=== PATIENT | male | born 1965 | race Caucasian/White ===

== ENCOUNTER 2024-06-21 12:13 | Emergency (ER) | payer BC, SELFPAY ==
[2024-06-21 12:14] VITALS: BP 152/92; PULSE 76; RESP 12; TEMP 36.4; O2SAT 97
--- NOTE | 2024-06-21 12:33 | ED.GENADUL_ITS ---
Discharge Plan Disposition Patient Disposition: Home Condition: Stable Discharge Details Clinical Impression: Splinter Primary Care Provider: Unknown,Unknown ED Provider: Gume Manjarrez Home Meds and New Rx's Prescriptions: New cephalexin 500 mg capsule 500 mg PO QID 3 Days Qty: 12 0RF No Action No Known Home Meds Discharge Instructions Instructions: Cephalexin, Foreign Body in Skin ED Additional Instructions: You were seen in the emergency department for your right large retained splinter of your left doan, this was removed after enlarging the puncture wound slightly with an incision, we removed about a 1.5 inch splinter from your leg, and placing you on 3 days of prophylactic antibiotics, please double check with your primary care provider on your test status, please return to the emergency department for any increasing signs of infection like redness, drainage pus from the area, gross swelling and increasing tenderness with red streaking up the leg. HPI General Date/Time Provider Initiated Documentation: 06/21/24 12:32 . HPI Narrative: 59 year-old male presents to ED today by POV/ambulating with a chief complaint of splinter stuck in L anterior doan while performing yard work with onset around 1000. Patient states large oak splinter went into his anterior doan. Quality described as not overly painful, no radiation to active bleeding, proximity to joint, other injuries, numbness distally. Severity is described as mild. Palliating factors include attempted self-removal but couldn't get it out. Provoking factors include nothing specific. Events leading up to the inciden t/Associated Symptoms: Patient is unsure of his last Tdap. Patient not anticoagulated. Related Data Home Medications ?Medication ?Instructions ?Recorded ?Confirmed Unknown [No Known Home Meds] 06/21/24 06/21/24 cephalexin 500 mg capsule 500 mg PO QID 3 days #12 caps 06/21/24 Previous Rx's ?Medication ?Instructions ?Recorded cephalexin 500 mg capsule 500 mg PO QID 3 days #12 caps 06/21/24 Allergies Allergy/AdvReac Type Severity Reaction Status Date / Time No Known Allergies Allergy Verified 06/21/24 12:19 General Stated Complaint: ForeignBody SUSU: 4 Review of Systems All systems reviewed & are unremarkable except as noted in HPI and below Exam Narrative Exam Narrative: GENERAL APPEARANCE: Well-nourished, non-toxic, awake and alert, atraumatic, no acute distress. SKIN: Warm, pink, dry, intact, single isolated puncture with wooden splinter palpated to L anterior doan, no active bleeding, well away from joint site, NV intact distally HEAD: Normocephalic, atraumatic, normal hair distribution for gender/age. EYES: Normal conjunctiva, no exudates on lids/lashes. ENT: Nares patent, no circumoral cyanosis, no facial swelling NECK: Supple, trachea midline, painless cervical ROM. LUNGS/CHEST: Non-labored respirations, normal A/P diameter, symmetrical expansion, no chest wall deformity HEART (CV/PV): No peripheral edema, no JVD. ABDOMEN: Soft, non-distended, no guarding. MSK: Normal ROM, no swelling/deformity to bilateral UEs or LEs, moving all extremities without weakness, no cyanosis, spine midline without tenderness, normal curvature. NEURO: Mental Status AAOx4 - alert to person, place, time, events No facial droop, no forehead involvement. Motor: No focal weakness - strength 5/5 in bilateral UEs and LEs, proximal and distal, symmetric. Sensory: sensation intact to light touch globally. Gait normal: patient ambulated without ataxia into ED room. PSYCH: euthymic, cooperative, pleasant, appropriate speech Course Vital Signs Vital signs: Vital Signs Temperature 36.4 C L 06/21/24 12:14 Pulse 76 06/21/24 12:14 Respiratory Rate 12 06/21/24 12:14 Blood Pressure 152/92 H 06/21/24 12:14 Pulse Oximetry 97 06/21/24 12:14 Temperature 36.4 C L 06/21/24 12:14 Temperature Source Oral 06/21/24 12:14 Pulse 76 06/21/24 12:14 Respiratory Rate 12 06/21/24 12:14 Respiratory Effort Normal 06/21/24 12:20 Blood Pressure 152/92 H 06/21/24 12:14 Pulse Oximetry 97 06/21/24 12:14 Oxygen Delivery Method Room Air 06/21/24 12:14 Oxygen Flow Rate 0 06/21/24 12:14 Pain Level 1 06/21/24 12:14 Procedures Foreign Body Removal Time Out Performed: yes Site: left and lower extremity Description of foreign body: other (splinter) Sedation/Analgesia: none Technique: removal with forceps and incision made to facilitate removal Confirmed by:: direct visualization and palpation Complications: none Post-procedure exam: awake, alert Neurovascular: normal distal pulse, normal capillary fill, distal light touch sensation intact and distal motor function normal Medical Decision Making This dictation utilizes [id number] dictation software and may contain unedited grammatical errors. 59 year-old male presents to ED today by POV/ambulating with a chief complaint of splinter stuck in L anterior doan while performing yard work with onset around 1000. Patient states large oak splinter went into his anterior doan. Quality described as not overly painful, no radiation to active bleeding, proximity to joint, other injuries, numbness distally. Severity is described as mild. Palliating factors include attempted self-removal but couldn't get it out. Provoking factors include nothing specific. Events leading up to the inciden t/Associated Symptoms: Patient is unsure of his last Tdap. Patients' medical history: noncontributory. Family and social history: noncontributory. Pertinent exam findings / vital signs include single isolated puncture with wooden splinter palpated to L anterior doan, no active bleeding, well away from joint site, NV intact distally. Differential / pathologies of concern include retained foreign body. Diagnostic studies of: -none. Interventions of: -splinter removal with mosquito forceps and 0.25cm expanded incision with #15 blade. ED Course/Assessment/Plan: 59-year-old male has a large wood splinter in his anterior left doan, I did expand the puncture wound by 0.25 cm with a 15 blade and was able to push the distal end of the splinter toward the entry wound and remove it with mosquito forceps without issue, about a 1.5 inch piece of Rampart was removed. Patients' Tdap is possibly up to date- I advised he check with his PCP. Findings not consistent with further retrained foreign body. Disposition of Splinter. Patient verbalized understanding of the plan and return to ED criteria and engaged in shared decision making. Medical Records Medical records reviewed: Yes I reviewed the patient's medical records. Quality:SDOH Health Related Social Needs: No Data to Display PFSH All Active Problems (Updated 06/21/24 @ 13:03 by DERRELL Miller) Splinter (Acute) Social History Smoking/Tobacco Use Status: Former Tobacco Use Smoking risk assessment performed?: Yes Drug use: Never Substance use type: does not use Housing: house Do you feel safe at home: Yes Do you feel safe in your relationship?: Yes
[2024-06-21] MEDS: Lidocaine/Epinephri/Tetracaine Topical Gel 3 ML TP (12:36)
== END 2024-06-21 13:12 | disposition home or self-care (01) ==
LOC: ER 13:03 → RED 13:12
PROVIDERS: Emergency Provider Physician Assistant
DX: S80.852A Superficial foreign body, left lower leg, initial encounter (principal); Z87.891 Personal history of nicotine dependence; W45.8XXA Other foreign body or object entering through skin, initial encounter; Y93.H2 Activity, gardening and landscaping; Y92.017 Garden or yard in single-family (private) house as the place of occurrence of the external cause
CPT/HCPCS: 10120; 99283